=== PATIENT | female | born 1960 | race Two or more races ===

== ENCOUNTER 2024-01-13 14:44 | Inpatient (IN) | payer OTHER ==
[~2024-01-13] VITALS: Ht 165.1 cm; Wt 73.9 kg
[2024-01-13] MEDS: MORPHINE SULFATE 4 MG/ML INJ (FOR IV/IM USE) IV STA (15:07)
[2024-01-13] MEDS: ONDANSETRON HCL 4MG/2ML INJ IV STA (15:07)
[2024-01-13] MEDS: SODIUM CHLORIDE 0.9% 1,000 ML IV ONE (15:07)
[2024-01-13 15:29] LABS: CLARITY URINE CLEAR (CLEAR); COLOR URINE YELLOW (YELLOW); GLUCOSE URINE TRACE (NEGATIVE); KETONES URINE 2+ (NEGATIVE); LEUKOCYTE ESTERASE URINE NEGATIVE (NEGATIVE); NITRITE URINE NEGATIVE (NEGATIVE); OCCULT BLOOD URINE NEGATIVE (NEGATIVE); PH URINE 6.5 (4.5-8.0); PROTEIN URINE 1+ (NEGATIVE); SPECIFIC GRAVITY URINE 1.011 (1.005-1.030); UROBILINOGEN URINE 0.2 E.U./dL (0.2-1.0)
[2024-01-13 15:55] LABS: BACTERIA URINE TRACE; RBC URINE 0-2 /hpf (0-2); SQUAMOUS EPITHELIAL CELL URINE FEW /lpf (RARE/1+); WBC URINE 0-2 /hpf (0-2)
[2024-01-13 17:21] LABS: HEMATOCRIT. 38.7 % (36.0-48.0); HEMOGLOBIN. 12.8 g/dL (12.0-16.0); MEAN CORPUSCULAR HEMOGLOBIN 29.7 pg (28.0-32.0); MEAN PLATELET VOLUME 7.4 fl (7.4-10.4); PLATELET 276 x1000/uL (130-400); RED CELL DISTRIBUTION WIDTH 14.2 % (11.6-14.6); WHITE BLOOD COUNT 11.2 x1000/uL (4.5-11.0)
[2024-01-13 17:22] LABS: DIFFERENTIAL COMMENT 1
[2024-01-13 17:26] LABS: CHLORIDE 100 mEq/L (98-107); POTASSIUM 3.9 mEq/L (3.5-5.1); SODIUM 133 mEq/L (136-145)
[2024-01-13 17:27] LABS: CALCIUM 9.7 mg/dL (8.7-10.4); CARBON DIOXIDE 27 mEq/L (21-32)
[2024-01-13 17:32] LABS: CREATININE 0.8 mg/dL (0.6-1.0); GLUCOSE 165 mg/dL (70-105); UREA NITROGEN BLOOD 8 mg/dL (9-23)
[2024-01-13 17:34] LABS: ALANINE AMINOTRANSFERASE 62 IU/L (10-49); ALBUMIN 4.6 g/dL (3.2-4.8); ASPARTATE AMINOTRANSFERASE 57 IU/L (<34); BILIRUBIN DIRECT 0.1 mg/dL (<=3.0)
[2024-01-13 17:35] LABS: BILIRUBIN TOTAL 0.5 mg/dL (0.1-1.0); PROTEIN TOTAL 7.4 g/dL (6.0-8.3)
[2024-01-13 17:43] LABS: PLATELET ESTIMATE NORMAL
[2024-01-13] MEDS: KETOROLAC 15MG/ML VIAL IV ONE (20:39)
[2024-01-13] MEDS: PIPERACILLIN/TAZO 3.375G/50ML 50 ML IV SCH (21:07)
[2024-01-14 08:00] VITALS: BP 121/63; PULSE 61; RESP 18; TEMP 37.28076; O2SAT 97
[2024-01-14 11:29] VITALS: BP 121/63; PULSE 61; RESP 20; TEMP 37.3076
[2024-01-14 12:00] VITALS: BP 119/56; PULSE 60; RESP 17; TEMP 36.3918; O2SAT 100
[2024-01-14] MEDS ORDERED: IPRATROPIUM/ALBUTEROL 0.5-3(2.5)MG/3ML NEB HHN PRN (13:15)
[2024-01-14] MEDS ORDERED: HYDRALAZINE 20MG/ML VIAL IV PRN (13:15)
[2024-01-14] MEDS: ACETAMINOPHEN 325MG TABLET PO PRN (13:41)
[2024-01-14] MEDS ORDERED: HYDRALAZINE 10 MG in SODIUM CHLORIDE 0.9% 49.5 ML IV PRN (14:00)
[2024-01-14] MEDS: PANTOPRAZOLE SODIUM 40 MG/VIAL IV SCH (14:06)
[2024-01-14] MEDS: DEXT 5%/0.9% NACL 1,000 ML IV SCH (14:07)
[2024-01-14 16:00] VITALS: BP 120/60; PULSE 60; RESP 18; TEMP 36.50292; O2SAT 95
[2024-01-14 16:54] LABS: *AMPHETAMINES SCREEN URINE NEGATIVE (NEGATIVE); *BARBITURATES SCREEN URINE NEGATIVE (NEGATIVE); *BENZODIAZEPINES SCREEN URINE NEGATIVE (NEGATIVE); *COCAINE SCREEN URINE NEGATIVE (NEGATIVE); CANNABINOID URINE SCREEN NEGATIVE (NEGATIVE); ECSTASY MDMA SCREEN URINE NEGATIVE (NEGATIVE); METHADONE URINE SCREEN NEGATIVE (NEGATIVE); OPIATES URINE SCREEN NEGATIVE (NEGATIVE); PHENCYCLIDINE URINE SCREEN NEGATIVE (NEGATIVE)
[2024-01-14] MEDS ORDERED: NALOXONE HCL 0.4MG/ML VIAL IV PRN (19:00)
[2024-01-14 20:00] VITALS: BP 112/71; PULSE 61; RESP 18; TEMP 36.22512; O2SAT 96
[2024-01-14] MEDS: MORPHINE SULFATE 2 MG/ML INJ (NOT FOR IM USE) IV PRN (23:48)
[2024-01-14] MEDS: ONDANSETRON HCL 4MG/2ML INJ IV PRN (23:52)
[2024-01-15] VITALS: BP 112/72; PULSE 60; RESP 18; TEMP 36.78072; O2SAT 98
[2024-01-15 01:16] VITALS: BP 112/72; PULSE 60; TEMP 98.2; O2SAT 98
== END 2024-01-15 03:13 | disposition short-term general hospital (02) | DRG 389 ==
LOC: ER 14:44 → 5WST 22:42 → 6EST 01-14 09:30
PROVIDERS: ADMIT Internal Medicine; ATTEND Internal Medicine
DX: K56.609 Unspecified intestinal obstruction, unspecified as to partial versus complete obstruction (principal); E87.1 Hypo-osmolality and hyponatremia; I31.39 Other pericardial effusion (noninflammatory); K56.7 Ileus, unspecified; K82.8 Other specified diseases of gallbladder; I10 Essential (primary) hypertension; Z20.822 Contact with and (suspected) exposure to COVID-19; D72.829 Elevated white blood cell count, unspecified; R74.01 Elevation of levels of liver transaminase levels; E03.9 Hypothyroidism, unspecified; E78.5 Hyperlipidemia, unspecified; Z90.49 Acquired absence of other specified parts of digestive tract; Z98.84 Bariatric surgery status; Z79.899 Other long term (current) drug therapy
CPT/HCPCS: 36415; 71045; 74176; 76705; 80048; 80076; 80305; 81003; 83605; 83880; 84145; 85025; 85379; 87426; 99285; J1885; J2270; J2405; J2470; J2543; J7042